=== PATIENT | male | born 1975 | race Two or more races ===

== ENCOUNTER 2019-01-23 19:02 | Emergency (ER) | payer MEDICAID ==
[~2019-01-23] VITALS: Ht 182.9 cm; Wt 174.6 kg
[2019-01-23 19:45] LABS: APPEARANCE,URINE Clear (CLEAR); BILIRUBIN,URINE Negative (NEGATIVE); BLOOD, URINE Negative Ery/uL (NEGATIVE); COLOR,URINE Yellow (YELLOW); KETONES,URINE 15 (NEGATIVE); LEUKOCYTE ESTERASE ,URINE Negative (NEGATIVE); NITRITE, URINE Negative (NEGATIVE); PH,URINE 5.5 (5.0-8.0); PROTEIN,URINE Negative (NEGATIVE); UGLUCOSE Negative (NEGATIVE); UROBILINOGEN,URINE 0.2 EU/dL (0.2)
[2019-01-23 19:47] LABS: BASOPHILS % (AUTO) 0.7 % (0.0-2.0); EOSINOPHILS % (AUTO) 0.4 % (0.0-6.0); HEMATOCRIT 40 % (39-51); HEMOGLOBIN 13.3 g/dL (13.5-17.5); LYMPHOCYTES # (AUTO) 2.5 /CMM (0.8-4.8); LYMPHOCYTES % (AUTO) 42.5 % (20.0-44.0); MEAN CORPUSCULAR HGB CONC 33 g/dl (31.0-36.0); MEAN CORPUSCULAR VOLUME 85 fL (80-96); MONOCYTES # (AUTO) 0.6 /CMM (0.1-1.30); MONOCYTES % (AUTO) 10.9 % (2.0-12.0); NEUTROPHILS # (AUTO) 2.7 /CMM (1.8-8.9); NEUTROPHILS % (AUTO) 45.5 % (43.0-81.0); PLATELET COUNT (AUTO) 220 /CMM (150-450); RED BLOOD CELL COUNT(AUTO) 4.67 MIL/uL (4.5-6.0)
--- NOTE | 2019-01-23 19:47 | NUR ---
AGUILAR FROM HOME C/O SI "I WANT TO RUN THRU TRAFFIC." +HEARING, -HI. PT CALM & COOPERATIVE. DENIES ANY OTHER DISCOMFORT, PT SEEN & EVAL'D BY DR. BOLIVAR & WILL CONT TO MONITOR.
[2019-01-23 19:59] LABS: ALANINE AMINOTRANSFERASE 21 U/L (12-78); ALBUMIN 3.8 g/dL (3.4-5.0); ALCOHOL, BLOOD < 3 mg/dL (0-0); ALKALINE PHOSPHATASE 74 U/L (46-116); ASPARTATE AMINOTRANSFERASE 14 U/L (15-37); BILIRUBIN,TOTAL 0.2 mg/dL (0.2-1.0); CALCIUM, SERUM 9.4 mg/dL (8.5-10.1); CARBON DIOXIDE 23 mmol/L (21-32); CHLORIDE 107 mmol/L (98-107); CREATININE 1.3 mg/dL (0.6-1.3); GLUCOSE 94 mg/dL (74-106); POTASSIUM 3.9 mmol/L (3.5-5.1); SODIUM SERUM 143 mmol/L (136-145); TOTAL PROTEIN, SERUM 7.7 g/dL (6.4-8.2); UREA NITROGEN, BLOOD 20 mg/dL (7-18)
[2019-01-23 20:02] LABS: ACETAMINOPHEN 0 ug/ml (10-30)
--- NOTE | 2019-01-23 20:15 | NUR ---
CALLED VICE PRESIDENT REGULATORY ROSALIE ROSARIO 1 HR
[2019-01-23 20:35] LABS: RBC,URINE NONE SEEN /HPF (0-2)
[2019-01-23 20:36] LABS: BACTERIA,URINE None seen /HPF (None Seen); SQUAMOUS EPITHELIAL CELL,UR Rare /HPF (None Seen); WBC,URINE 0-2 /HPF (0-3)
--- NOTE | 2019-01-23 21:09 | NUR ---
ROSALIE AIRLINE RESERVATION AGENT AT FOR EVAL.
--- NOTE | 2019-01-23 23:01 | NUR ---
PT CALM & COOPERATIVE, DENIES CP, SOB, DIZZINESS, N/V AT THIS TIME. SITTER AT BS & WILL CONT TO MONITOR. AWAITING TRANSFER TO [facility].
[2019-01-23 23:03] VITALS: BP 128/68
--- NOTE | 2019-01-24 01:42 | NUR ---
Pt accepted to [facility] by Dr. Chiu. # for report [phone]
--- NOTE | 2019-01-24 01:48 | NUR ---
CALLED FOR TRANSPORT. TRIP #[id number].
--- NOTE | 2019-01-24 01:59 | NUR ---
Report given to Chanel MARRERO for continuation of care. Addendum: 01/24/19 at 0201 by CBATACLAN Report given to Brianda MARRERO for continuation of care.
--- NOTE | 2019-01-24 02:51 | NUR ---
Pt transfered to [facility] via ambulance.
== END 2019-01-24 02:54 | disposition home or self-care (01) ==
LOC: ER 19:02
DX: F20.9 Schizophrenia, unspecified (principal); R45.851 Suicidal ideations; F10.10 Alcohol abuse, uncomplicated; Y90.0 Blood alcohol level of less than 20 mg/100 ml
CPT/HCPCS: 36415; 80048; 80076; 80305; 80307; 80329; 81001; 85025; 99284; G0480; 81000-TC

== ENCOUNTER 2019-06-20 08:29 | Emergency (ER) | payer SELFPAY ==
[~2019-06-20] VITALS: Ht 182.9 cm; Wt 135.6 kg
--- NOTE | 2019-06-20 08:35 | NUR ---
PT BIBRA 85 C/O SI/HI FROM THE STREETS "I WANT TO RUN THROUGH TRAFFIC" PT IS AAOX3, NOT IN RESPIRATORY DISTRESS, HOOKED TO MONITOR, KEPT RESTED AND COMFORTABLE, WILL CONTINUE TO MONITOR.
--- NOTE | 2019-06-20 08:47 | NUR ---
PT IS ON THE GOWN, ALL PT BELONGINGS ON THE LOCKER.
--- NOTE | 2019-06-20 08:52 | NUR ---
URINE SPECIMEN COLLECTED AND SENT TO LAB.
[2019-06-20 09:20] LABS: APPEARANCE,URINE Clear (CLEAR); BILIRUBIN,URINE Negative (NEGATIVE); BLOOD, URINE Trace-intact Ery/uL (NEGATIVE); COLOR,URINE Yellow (YELLOW); KETONES,URINE Negative (NEGATIVE); LEUKOCYTE ESTERASE ,URINE Negative (NEGATIVE); NITRITE, URINE Negative (NEGATIVE); PROTEIN,URINE Negative (NEGATIVE); UGLUCOSE Negative (NEGATIVE)
[2019-06-20 09:23] LABS: BASOPHILS # (AUTO) 0.1 /CMM (0.0-0.2); EOSINOPHILS % (AUTO) 2.4 % (0.0-6.0); HEMATOCRIT 40 % (39-51); HEMOGLOBIN 12.8 g/dL (13.5-17.5); LYMPHOCYTES # (AUTO) 2.3 /CMM (0.8-4.8); LYMPHOCYTES % (AUTO) 45.1 % (20.0-44.0); MEAN CORPUSCULAR HGB CONC 32 g/dl (31.0-36.0); MEAN CORPUSCULAR VOLUME 86 fL (80-96); MONOCYTES # (AUTO) 0.4 /CMM (0.1-1.30); MONOCYTES % (AUTO) 8.6 % (2.0-12.0); NEUTROPHILS # (AUTO) 2.2 /CMM (1.8-8.9); NEUTROPHILS % (AUTO) 42.9 % (43.0-81.0); PLATELET COUNT (AUTO) 156 /CMM (150-450); RED BLOOD CELL COUNT(AUTO) 4.67 MIL/uL (4.5-6.0); WHITE BLOOD COUNT (AUTO) 5.2 K/uL (4.3-11.0)
[2019-06-20 09:25] LABS: BACTERIA,URINE Rare /HPF (None Seen); WBC,URINE 0-2 /HPF (0-3)
[2019-06-20 09:26] LABS: RBC,URINE 0-2 /HPF (0-2); SQUAMOUS EPITHELIAL CELL,UR Rare /HPF (None Seen)
[2019-06-20 09:32] LABS: CALCIUM, SERUM 8.5 mg/dL (8.5-10.1); CARBON DIOXIDE 29 mmol/L (21-32); CHLORIDE 105 mmol/L (98-107); GLUCOSE 91 mg/dL (74-106); POTASSIUM 4.1 mmol/L (3.5-5.1); SODIUM SERUM 142 mmol/L (136-145); UREA NITROGEN, BLOOD 21 mg/dL (7-18)
[2019-06-20 09:37] LABS: ALANINE AMINOTRANSFERASE 25 U/L (12-78); ALBUMIN 3.5 g/dL (3.4-5.0); ALCOHOL, BLOOD < 3 mg/dL (0-0); ALKALINE PHOSPHATASE 76 U/L (46-116); ASPARTATE AMINOTRANSFERASE 19 U/L (15-37); BILIRUBIN,DIRECT 0.1 mg/dL (0.0-0.2); BILIRUBIN,TOTAL 0.1 mg/dL (0.2-1.0)
[2019-06-20 09:38] LABS: ACETAMINOPHEN 0 ug/ml (10-30); SALICYLATE 2.4 mg/dL (2.8-20.0)
[2019-06-20] MEDS ORDERED: BENZTROPINE MESYLATE (1 MG) 1 MG TABLET ONE (09:50)
[2019-06-20] MEDS ORDERED: OLANZAPINE 5 MG TABLET ONE (09:51)
[2019-06-20] MEDS: BENZTROPINE MESYLATE (1 MG) 1 MG TABLET PO ONE (09:53)
[2019-06-20] MEDS: OLANZAPINE 5 MG TABLET PO ONE (09:54)
[2019-06-20 10:19] VITALS: BP 128/82
--- NOTE | 2019-06-20 10:19 | NUR ---
Patient discharged in custody in stable condition. Written and verbal after care instructions given to patient verbalizes understanding of instruction.
== END 2019-06-20 10:20 ==
LOC: ER 08:36
DX: F28 Other psychotic disorder not due to a substance or known physiological condition (principal); F32.9 Major depressive disorder, single episode, unspecified; R45.851 Suicidal ideations; I10 Essential (primary) hypertension; J45.909 Unspecified asthma, uncomplicated; E11.9 Type 2 diabetes mellitus without complications; F41.9 Anxiety disorder, unspecified
CPT/HCPCS: 36415; 80048; 80076; 80305; 80307; 80329; 81001; 85025; 99284; G0480; 81000-TC